=== PATIENT | male | born 1960 | race Caucasian/White ===

== ENCOUNTER 2016-11-27 11:09 | Emergency (ER) | payer OTHER ==
--- NOTE | 2016-11-27 11:40 | ED GENERAL ADULT ---
See Addendum History of Present Illness General Chief Complaint: Fall Stated Complaint: FALL OF LADDER/LFT SHOULDER PAIN Source: patient Exam Limitations: no limitations Vital Signs & Intake/Output Vital Signs & Intake/Output Vital Signs Date Time Temp Pulse Resp B/P B/P Pulse O2 O2 Flow FiO2 Mean Ox Delivery Rate 11/27 1231 98.4 103 20 146/84 93 Room Air 11/27 1122 97.0 99 16 123/77 93 Room Air Allergies Coded Allergies: No Known Allergies (11/27/16) Triage Note: PT C/O LT SHOULDER PAIN S/P FALLING OFF 13 FOOT LADDER, STATES HE LANDED ONTO HIS LEFT SHOULDER. +DISTAL CMS. Triage Nurses Notes Reviewed? yes Onset: Abrupt Duration: hour(s): Timing: recent history HPI: 11/27/16 12:02 PM 55-year-old man presents to the emergency department complaining of left shoulder pain. According to the patient he was doing some work on a ladder and he fell off the ladder. He says he fell 13 feet. He did catch the rungs on the way down and this broke the fall somewhat according to the patient. He denies headache. He denies neck pain. He denies chest pain. He denies abdominal pain. He complains of left anterior shoulder pain. The onset of the symptoms was abrupt. The duration was just today. The severity was significant as his symptoms required him to come to the emergency department for care. Past History Travel History Traveled to [place] past 21 day No Medical History Any Pertinent Medical History? see below for history Musculoskeletal: disk herniation Surgical History Surgical History: non-contributory Psychosocial History What is your primary language Egyptian Tobacco Use: Never used Family History Hx Contributory? No Review of Systems Review of Systems Constitutional: Reports: no symptoms. EENTM: Reports: no symptoms. Respiratory: Reports: no symptoms. Cardiovascular: Reports: no symptoms. GI: Reports: no symptoms. Genitourinary: Reports: no symptoms. Musculoskeletal: Reports: see HPI. Skin: Reports: no symptoms. Neurological/Psychological: Reports: no symptoms. Hematologic/Endocrine: Reports: no symptoms. Immunologic/Allergic: Reports: no symptoms. All Other Systems: Reviewed and Negative Physical Exam Physical Exam General Appearance: well developed/nourished, alert, awake, anxious, mild distress Head: atraumatic, normal appearance Eyes: Bilateral: normal appearance, PERRL, EOMI. Ears, Nose, Throat: normal pharynx, normal ENT inspection Neck: normal inspection, supple, full range of motion Respiratory: normal breath sounds, chest non-tender, no respiratory distress Cardiovascular: regular rate/rhythm Peripheral Pulses: 4+ radial (R), 4+ radial (L) Gastrointestinal: non-tender Back: normal range of motion Extremities: tenderness Neurologic/Psych: no motor/sensory deficits, awake, alert, oriented x 3 Skin: intact, normal color, warm/dry Comments: Physical examination is significant for left anterior shoulder tenderness. Core Measures ACS in differential dx? No CVA/TIA Diagnosis: No Severe Sepsis Present: No Septic Shock Present: No Progress Differential Diagnoses I considered the following diagnoses in my evaluation of the patient: [Fracture, dislocation, other occult injuries.] Plan of Care: Orders Procedure Date/time Status XRY-SHOULDER COMPLETE-LEFT 11/27 1124 Active Initial ED EKG: none Departure Departure Disposition: STILL A PATIENT Condition: Stable Clinical Impression Primary Impression: Shoulder strain Referrals: KATHI EMERSON,SHAINA Alejo (PCP/Family) Departure Forms: Customer Survey General Discharge Information Comments PATIENT: BRAD WARE PRESENT AGE: 55 PATIENT ACCOUNT NO: [id number] : 56 LOCATION: [facility] ORDERING PHYSICIAN: SANDRA ARRINGTON DO SERVICE DATE: 11/27/16 EXAM TYPE: RAD - XRY-SHOULDER COMPLETE-LEFT EXAMINATION: XR SHOULDER, LEFT CLINICAL INFORMATION: Rule out dislocation COMPARISON: None TECHNIQUE: AP external rotation, Grashey, scapular Y, and axillary views of the left shoulder. FINDINGS: Comminuted fracture proximal humerus. This involves the surgical neck extending into lateral humeral head in the region of the insertion of the superior rotator cuff. No dislocation. IMPRESSION: Comminuted fracture proximal humerus. Mild distraction fracture fragments. DICTATED BY: SANDRA ANGUIANO MD DATE/TIME DICTATED:11/27/161257 BIOLOGY INSTRUCTOR:FELIPE DATE/TIME TRANSCRIBED:11/27/161257 CONFIDENTIAL, DO NOT COPY WITHOUT APPROPRIATE AUTHORIZATION. <Electronically signed in Other Vendor System> SIGNED BY: SANDRA ANGUIANO MD 11/27/16 130 X-ray results shown below. The films were reviewed with the on-call orthopedist Dr. Garcia was in agreement with the management. I Will place the patient in the left shoulder immobilizer. He'll follow-up with the orthopedist this week Left shoulder immobilizer placed by ED RN. Critical Care Note Critical Care Note Critical Care Time: non-applicable
[2016-11-27 12:31] VITALS: BP 146/84
--- NOTE | 2016-11-27 13:03 | RADIOLOGY REPORT ---
EXAMINATION: XR SHOULDER, LEFT CLINICAL INFORMATION: Rule out dislocation COMPARISON: None TECHNIQUE: AP external rotation, Grashey, scapular Y, and axillary views of the left shoulder. FINDINGS: Comminuted fracture proximal humerus. This involves the surgical neck extending into lateral humeral head in the region of the insertion of the superior rotator cuff. No dislocation. IMPRESSION: Comminuted fracture proximal humerus. Mild distraction fracture fragments.
[2016-11-27] MEDS ORDERED: IBUPROFEN600 M1 PO (13:14)
[2016-11-27] MEDS ORDERED: PERCOCET 5-3251 EACH PO (13:17)
== END 2016-11-27 13:22 ==
LOC: ERH 11:09
DX: S46.912A Strain of unspecified muscle, fascia and tendon at shoulder and upper arm level, left arm, initial encounter (principal); W11.XXXA Fall on and from ladder, initial encounter; Y92.9 Unspecified place or not applicable; Y93.9 Activity, unspecified
CPT/HCPCS: 73030-LT; 96372; J1885